=== PATIENT | male | born 1950 | race Caucasian/White ===

== ENCOUNTER 2024-06-12 00:55 | Emergency (ER) | payer MEDICARE, SELFPAY ==
[2024-06-12 00:56] VITALS: BP 143/97; PULSE 93; RESP 18; TEMP 36.6; O2SAT 98; BMI 34.4
--- NOTE | 2024-06-12 01:55 | EX.ED.VIS.UR ---
HPI HPI - URI History of Present Illness Chief Complaint: Cold Sx Informant: patient Onset/Context/Timing Onset: Yesterday Context: Gradual Onset Timing: Continuous Quality: Drainage, redness Location: Bilateral eyes Associated Symptoms Associated Symptoms: Positive for Nonproductive cough; Negative for Nasal Congestion, Headache, Sinus Pressure, Nausea, Vomiting, Diarrhea, Shortness of Breath, Chest Pain, Hemoptysis or Productive Cough Narrative Narrative: Patient presents with upper respiratory congestion that began yesterday. Patient admits to a sore throat and cough. Patient states his symptoms have gradually gotten worse since yesterday. Patient admits to some redness and drainage from both eyes. The patient states nothing makes it better and nothing makes it worse. Patient denies any fevers or chills. Patient denies any sputum production. Patient denies any chest pain. Patient denies any shortness of breath. ROS ROS ED Constitutional Constitutional ED: Denies chills or fever(s) Eyes Eyes: Reports other Details: Drainage from bilateral eyes ; Denies blurry vision or change in vision ENT ENT ED: Reports sore throat; Denies rhinorrhea Cardiovascular Cardiovascular: Denies chest pain or palpitations Respiratory/Chest Respiratory/Chest: Reports cough; Denies dyspnea Gastrointestinal Gastrointestinal: Denies nausea or vomiting Genitourinary Genitourinary ED: Denies dysuria or hematuria Musculoskeletal Musculoskeletal: Denies back pain or neck pain Integumentary Denies abscess or rash Neurologic Neurologic: Denies headache(s) or weakness Allergic/Immunologic Allergic/Immunologic ED: Denies mouth swelling or urticaria [facility] Medical History CAD (coronary artery disease) Mixed hyperlipidemia Atrial fibrillation Home Medications ?Medication ?Instructions ?Recorded ?Last Taken ?Type apixaban 5 mg tablet (Eliquis) 5 mg PO BID 06/12/24 Unknown History atorvastatin 20 mg tablet 20 mg PO DAILY 06/12/24 Unknown History digoxin 125 mcg (0.125 mg) tablet 125 mcg PO DAILY 06/12/24 Unknown History losartan 50 mg tablet 50 mg PO DAILY 06/12/24 Unknown History metformin 500 mg tablet 1,000 mg PO DAILY 06/12/24 Unknown History Allergy/AdvReac Type Severity Reaction Status Date / Time No Known Allergies Allergy Verified 06/12/24 01:02 Surgical History H/O heart artery stent Social History Smoking Status: Unknown if ever smoked EXAM Physical Exam Const Vital Signs: 06/12/24 00:56 06/12/24 01:02 Temperature 97.8 F Temperature Source Oral Pulse Rate 93 Respiratory Rate 18 Respiratory Effort Normal Respiratory Pattern Normal Blood Pressure 143/97 H Blood Pressure Mean 112 Pulse Ox 98 Oxygen Delivery Method Room Air Positive well nourished and well developed General Appearance ED: well developed and NAD HEENT Reports moist mucous membranes normocephalic and atraumatic Throat: posterior oropharynx abnormal Positive for erythema Eyes PERRL and EOMs intact bilaterally Neck supple, no meningeal signs and no JVD Resp normal respiratory effort and clear to auscultation bilaterally Cardio Rate: regular rate Rhythm: abnormal rhythm irregularly irregular GI non-tender and non-distended Palpation: soft Neuro oriented x3, CN's II-XII intact bilaterally and no sensory deficits noted Sensorium / Orientation: alert Motor Exam: strength 5/5 throughout Psych mental status grossly normal MDM MDM MDM Narrative Medical decision making narrative: Differential diagnosis includes pneumonia, viral illness, upper respiratory infection, strep pharyngitis, and bronchitis. Chest x-ray will be obtained to assess for pneumonia and bronchitis. COVID-19, influenza, and RSV PCR will be obtained to assess for viral illness. Rapid strep will be obtained to assess for strep pharyngitis. Lab Data Attestation: I reviewed the patient's lab results. Lab results narrative: COVID-19 PCR was reviewed and was negative. Influenza PCR was reviewed and was negative for influenza A and influenza B. RSV PCR was reviewed and was negative. Rapid strep was reviewed and was negative. Radiography Chest X-Ray - ED: 2 View, Read by ED Physician, Read by Radiologist and No Acute Disease Diagnostic Testing: PA and lateral chest x-ray was obtained. There are 2 views. On my independent interpretation, lung piper are clear. There is normal cardiac silhouette. Bony thorax is normal. There is no acute process noted. Radiologist also interpreted the x-ray and agrees. Treatment and Re-Evaluation Narrative: Patient is resting comfortably on reevaluation. Patient was advised of his findings. Patient was advised that this most likely a viral upper respiratory infection. Patient was advised that this is most likely causing viral conjunctivitis. Patient was instructed to drink plenty of fluids. Patient was instructed to wash his hands anytime he touches his eyes. Patient was instructed to follow-up with his primary care physician in 5 to 7 days. Patient was instructed return if worse in any way. Patient understood and was agreeable with the plan. All questions were answered. Discharge Plan Triage Chief Complaint: Cold Sx ED Provider: Esteban Reyes Dx/Rx/DC Orders Clinical Impression: Viral URI, Viral conjunctivitis of both eyes Instructions: ED Conjunctivitis, Viral, ED URI, Viral, No Abx (Adult) Prescriptions: No Action metformin 500 mg tablet 1,000 mg PO DAILY losartan 50 mg tablet 50 mg PO DAILY atorvastatin 20 mg tablet 20 mg PO DAILY digoxin 125 mcg (0.125 mg) tablet 125 mcg PO DAILY Eliquis 5 mg tablet 5 mg PO BID Primary Care Provider: SALONI COLMENARES Referrals: SALONI COLMENARES [Other] - 5-7 Days Print Language: Mauritian Disposition Disposition: Home, Self Care
--- NOTE | 2024-06-12 01:56 | RAD_ITS ---
EXAM: XR CHEST, 2 VIEWS CLINICAL INDICATION: COUGH TECHNIQUE: Frontal and lateral views of the chest. COMPARISON: No relevant prior studies available. FINDINGS: LUNGS AND PLEURAL SPACES: Mild central bronchial wall thickening. Subsegmental atelectasis at the lung bases. No consolidation. No pleural effusion or pneumothorax. HEART: Unremarkable. Cardiac silhouette not enlarged. MEDIASTINUM: Central airways and mediastinal contour are unremarkable. BONES/JOINTS: Degenerative changes of the spine. No acute fracture. SOFT TISSUES: Unremarkable. VASCULATURE: Tortuous thoracic aorta. Atherosclerotic calcifications of the nonenlarged thoracic aortic arch. RAD/Chest PA and Lateral IMPRESSION: 1. Bronchitis, age indeterminate. 2. No pneumonia or other acute disease. Electronically Signed: Iggy Patel MD at 3:05 EDT ,
[2024-06-12 03:55] VITALS: BP 135/87; PULSE 95; RESP 18; TEMP 36.2; O2SAT 95
== END 2024-06-12 03:56 | disposition home or self-care (01) ==
PROVIDERS: Emergency Provider Emergency Medicine; Visit Provider Emergency Medicine
DX: J06.9 Acute upper respiratory infection, unspecified (principal); I48.91 Unspecified atrial fibrillation; E78.2 Mixed hyperlipidemia; B30.9 Viral conjunctivitis, unspecified; I25.10 Atherosclerotic heart disease of native coronary artery without angina pectoris; Z79.01 Long term (current) use of anticoagulants; Z79.84 Long term (current) use of oral hypoglycemic drugs; Z79.899 Other long term (current) drug therapy
CPT/HCPCS: 71046; 87631; 87651; 99282

== ENCOUNTER → 2025-01-17 | Outpatient (CLI) | payer MEDICARE, SELFPAY ==
--- NOTE | 2025-01-17 10:00 | HIP_PTH ---
PATIENT: ALIE PAN LOC: [facility] U#:[id number] AGE/SX: 74/M ROOM: RE01/17/[address]: Dr. Demond Desir MD : [id number] BED: DIS: 01/17/2025 SPEC #: [id number] RECD: 01/17/25 15:04 STATUS: KATHRYN REGarrett #: [id number] CHRISTOPHER: 01/17/25 10:[address]: Demond Desir DEPT: SURGICAL PATHOLOGY RECD BY: Priscila Dubose ENTERED: 01/20/25 07:29 SP TYPE: TOTAL HIP OTHR DR: HE Tissues: A - Hip, NOS Procedures: Decalcification bone/plaque Surgery Specimen Level III HEADER OPERATION: Total right hip arthroplasty PRE-OP DIAGNOSIS: Severe right hip osteoarthritis TISSUE SUBMITTED: A- Right hip bone and tissue MICROSCOPIC DIAGNOSIS A. Right femoral head, osteoarthritis, total hip arthroplasty: * Trabecular bone with marked reactive/degenerative changes and focal necrosis. MICROSCOPIC DESCRIPTION Slides are reviewed. GROSS DESCRIPTION A. Received in formalin in a container labeled with the patient's name, date of , and right femoral head is a 5.7 x 5.7 x 5.3 cm femoral head with attached 2.4 cm in length by 5.0 cm in diameter femoral neck. The resection margin is smooth and firm. The cortical surface is markedly pitted and granular with smooth areas of eburnation. The specimen is quadrisected to reveal unremarkable surfaces. There are multiple esquivel soft tissue and bone curettings measuring approximately 10.0 x 9.0 x 2.5 cm in aggregate. Investigator Welfare sections are submitted in A1 following decalcification. [facility] 01-20-2025 CPT:42568,31077
== END | disposition home or self-care (01) ==
LOC: LABSPEC 15:26
PROVIDERS: Referring Provider Orthopaedic Surgery; Visit Provider Orthopaedic Surgery
DX: M16.11 Unilateral primary osteoarthritis, right hip (principal)
CPT/HCPCS: 88305; 88311